=== PATIENT | male | born 2005 | race Caucasian/White ===

== ENCOUNTER 2024-06-04 12:19 | Outpatient (OUT) | payer BC, OTHER, SELFPAY | END 2024-06-04 12:20 | disposition home or self-care (01) | LOC: PST 12:25 | PROVIDERS: PCP Family Medicine; Visit Provider Surgery | DX: Z01.818 Encounter for other preprocedural examination (principal); L05.91 Pilonidal cyst without abscess ==

== ENCOUNTER 2024-06-20 09:35 | Day surgery (SDC) | payer BC, OTHER, SELFPAY ==
[2024-06-04 12:54] VITALS: BP 118/63; PULSE 63; TEMP 36.3; O2SAT 99; BMI 30.7
[2024-06-20] VITALS (13 sets, daily range): BP systolic 95–162; BP diastolic 60–78; PULSE 68–97; TEMP 36.1–36.4; O2SAT 94–99; BMI 30.9
--- NOTE | 2024-06-20 | OP_ITS ---
OPERATION DATE: 06/20/2024 PREOPERATIVE DIAGNOSIS: Pilonidal cyst with sinus tract. POSTOPERATIVE DIAGNOSIS: Pilonidal cyst with sinus tract. PROCEDURE: Excisional pilonidal cyst with sinus tract with primary closure of the midline pits as well as lateral packing. SURGEON: Rafi Palma M.D. ANESTHESIA: General endotracheal, as well as local with 0.5% Marcaine plain. ESTIMATED BLOOD LOSS: Less than 20 mL. 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 Indications, risks, benefits, alternatives of proceeding with excision of pilonidal disease with likely packing were explained extensively the patient, including risks of bleeding, infection, scarring and pain, recurrence, need for further surgery, anesthetic complications. All of his questions were answered. Informed consent was obtained. PROCEDURE: Patient brought to the operating room, placed in the left supine position, general anesthesia was induced. He was then placed in the prone position and appropriately monitored and padded. He was prepped and draped in the usual sterile fashion. He was noted to have a large granuloma that was draining bloody fluid just to the left of the upper gluteal cleft with marked inflammation. In the mid gluteal cleft, there was noted to be four dilated pits with no current inflammation or drainage from this area. The granuloma area to the left of the upper cleft was excised in an elliptical fashion. The area was curetted out. A large amount of hair and granulation tissue was removed. Elliptical incision was then made to excise the midline pits. This was extended over to the left in order to close the incision off in the midline. The right sided portion of the incision was mobilized as a flap. It should be noted that the granulation tissue, extending from the left upper area, extended deep to the pre-sacral fashion. This area was all excised and debrided with the curette. A large amount of hair and granulation tissue was removed. Once this was completed, the flap was then closed in layers with some 3-0 Monocryl subcutaneous sutures, 4-0 Monocryl subcuticular sutures, as well as some interrupted 5-0 nylon sutures. The granuloma area to the left of the upper gluteal cleft was then packed with half inch Iodoform. Glue was applied to the closed incision, as well as a sterile pressure dressing. Sponge and needle counts were correct x3 per nursing personnel. Patient tolerated procedure well, was placed back in the supine position, extubated and sent to recovery room in good condition. CC: Anmol Diaz
--- OUTSIDE RECORDS SUMMARY | 2024-06-20 09:52 | XMS_ITS | CCD ---
Author Organization [facility] Care Team Providers Care General Accounting Clerk Name Role Phone Jovana Hoyt Unavailable JOVANA HOYT Admitting Unavailable DONNELL, DR MARY Tavares Consulting Unavailable JOVANA HOYT Attending Unavailable SHERLEY PHELPS Primary Care Unavailable JOVANA HOYT Consulting Unavailable ROSITA, DR TIFFANY Stearns Attending Unavailable ROSITA, DR TIFFANY Stearns Admitting Unavailable ANIRUDH, DR AYLIN Horton Consulting Unavailable SHERLEY PHELPS Primary Care Unavailable ROSITA, DR TIFFANY Stearns Consulting Unavailable SHERLEY PHELPS Admitting Unavailable SHERLEY PHELPS Attending Unavailable SHERLEY PHELPS Consulting Unavailable SHERLEY PHELPS Primary Care Unavailable SHERLEY PHELPS Primary Care Unavailable MAURO WILSON Admitting Unavailable MAURO WILSON Attending Unavailable MAURO WILSON Consulting Unavailable LINCOLN NEWMAN Consulting Unavailable Tiffany Becker Unavailable TIFFANY BECKER Primary Care Physician [phone] No, Physician Primary Care Provider Unavailabl e PROVIDER, EXTERNAL Admitting Unavailable TONYA CHRISTENSEN Attending Unava ilable NO, PHYSICIAN Primary Care Unavailable TONYA CHRISTENSEN Attending Unava ilable JOSE MIGUEL, PHYSICIAN Primary Care Unavailable Rafi PALMA Attending Unavailable Allergies Allergy Classification Reported Allergen(s) Allergy Type Date of Onset Reaction(s) Facility (1 source) No Known Medication Allergies; Translations: [No Known Medication Allergies] Propensity to adverse reactions (disorder) [facility] Repository Medications Current Medications Medication Drug Class(es) Dates Sig (Normalized) Sig (Original) amoxicillin 500 mg oral capsule (3 sources) Penicillin-class Antibacterial Start: 01-28-2023 take 1 capsule by mouth every eight hours Amoxicillin 500 MG 1 capsule Orally every 8 hrs for 10 days Dec, Active Start: 08-04-2022 take 1 capsule by [facility] every eight hours Amoxicillin 500 MG 1 capsule Orally every 8 hrs for 7 days Aug, Active amoxicillin 875 mg / clavulanate 125 mg oral tablet (3 sources) Penicillin-class Antibacterial Start: 04-23-2024 take 1 tablet by mouth twice daily Amoxicillin-Pot Clavulanate Active 1 TAB PO Twice daily April 23, 2024 12:00am Start: 08-19-2023 take 1 tablet by michael th every twelve hours Amoxicillin-Pot Clavulanate 875-125 MG 1 tablet Orally every 12 hrs for 10 day(s) Aug, Active Start: 02-09-2023 End: 02-14-2023 take 1 tablet by mouth twice daily Augmentin 875 mg oral tablet = 1 tab(s), Oral, BID, X 5 day(s), # 10 tab(s), Refills(s) 0, Pharmacy: [facility]/pharmacy #[id number], 190.5, cm, 02/09/23 15:30:00 EDT, Height/Length Dosing, 90.2, kg, 02/09/23 15:30:00 EDT, Weight Dosing Start Date: 02/09/23 Stop Date: 02/14/23 Status: Ordered clarithromycin 500 mg oral tablet (2 sources) Macrolide Antimicrobial Start: 10-07-2022 take 1 tablet by mouth every twelve hours Clarithromycin 500 MG 1 tablet Orally every 12 hrs for 10 days Sep, Active escitalopram 10 mg oral tablet (5 sources) Serotonin Reuptake Inhibitor Start: 06-01-2024 take 1 tablet by mouth once daily Lexapro 10 mg Tab 10 mg = 1 tab(s), Oral, Daily, Refills(s) 0 Start Date: 06/01/24 Status: Ordered Start: 02-03-2024 End: 02-20-2024 take 1 tablet by mouth once daily Escitalopram Oxalate (Lexapro) 10 mg tablet Active 10 MG PO Daily February 20, 2024 12:57pm methylPREDNISolone 4 mg oral tablet (2 sources) Corticosteroid Start: 01-28-2023 methylPREDNISolone 4 MG as directed Orally for 6 days Dec, Active ondansetron 4 mg disintegrating oral tablet (1 source) Serotonin-3 Receptor Antagonist Start: 08-17-2023 End: 08-20-2023 apply 1 tablet topically every eight hours as needed for nausea ondansetron (ZOFRAN-ODT) 4 MG disintegrating tablet Indications: Influenza-like illness Dissolve 1 (one) tablet (4 mg total) on top of tongue every 8 (eight) hours as needed for nausea . 9 tablet 0 08/17/2023 08/20/2023 Active oseltamivir 75 mg oral capsule (1 source) Neuraminidase Inhibitor Start: 08-17-2023 End: 08-22-2023 take 1 capsule by mouth twice daily oseltamivir (TAMIFLU) 75 MG capsule Indications: Influenza-like illness Take 1 (one) capsule (75 mg total) by mouth 2 (two) times a day for 5 days . 10 capsule 0 08/17/2023 08/22/2023 Active predniSONE 20 mg oral tablet (1 source) Start: 08-04-2022 take 2 tablets by mouth once daily at mealtime predniSONE 20 MG 2 tablets with food or milk Orally Once a day for 5 days Aug, Active Completed/Discontinued Medications Medication Drug Class(es) Dates Sig (Normalized) Sig (Original) Azithromycin (5 sources) Macrolide Antimicrobial Start: 06-30-2015 Zithromax 200mg/5ml 200 mg/5 ml 9.4 mL today, then 4.7 ML once daily on day 2-5 orally daily for 5 days Jun, Not-Taking busPIRone (5 sources) busPIRone HCl Not-Taking busPIRone HCl Ac tive Problems Active Problems Problem Classification Problem Date Documented Da te Episodic/Chronic Acute and chronic tonsillitis (8 sources) Enlarged tonsil; Translations: [Hypertrophy of tonsils] Chronic Acute and chronic tonsillitis (2 sources) Acute tonsillitis, unspecified; Translations: [Acute tonsillitis] Episodic Anxiety disorders (7 sources) Anxiety; Translations: [Anxiety disorder] 02-02-2023 Chronic Asthma (1 source) Exacerbation of asthma; Translations: [Unspecified asthma with (acute) exacerbation] Chronic Immunizations and screening for infectious disease (1 source) Vaccination given; Translations: [Encounter for immunization] Episodic Influenza (3 sources) Influenza-like illness; Translations: [Influenza due to unidentified influenza virus with other respiratory manifestations] Onset: 08-17-2023 08-17-2023 Episodic Mycoses (2 sources) Tinea corporis; Translations: [Tinea corporis] Onset: 11-08-2023 Episodic Other connective tissue disease (1 source) Muscle pain; Translations: [Myalgia, other site] Episodic Other nutritional; endocrine; and metabolic disorders (1 source) Body mass index 30+ - obesity 06-01-2024 Chronic Other nutritional; endocrine; and metabolic disorders (1 source) Obesity caused by energy imbalance 06-01-2024 Chronic Other nutritional; endocrine; and metabolic disorders (1 source) Body mass index less than 20; Translations: [Body mass index (BMI) 19.9 or less, adult] Episodic Other skin disorders (4 sources) Localized swelling, mass and lump, neck; Translations: [LOCALIZED SWELLING MASS AND LUMP NECK] Onset: 12-23-2021 Episodic Other skin disorders (1 source) Localized swelling, mass and lump, neck; Translations: [Localized swelling, mass and lump, neck] Episodic Other skin disorders (1 source) Disorder of skin; Translations: [Other specified disorders of the skin and subcutaneous tissue] Onset: 06-01-2024 Episodic Other skin disorders (1 source) Pilonidal disease 06-01-2024 Episodic Other upper respiratory infections (11 sources) Acute pharyngitis, unspecified; Translations: [Acute maxillary sinusitis, unspecified] Onset: 04-02-2021 Episodic Residual codes; unclassified (1 source) Normal body mass index; Translations: [Body mass index (BMI) 24.0-24.9, adult] Episodic Residual codes; unclassified (1 source) Symptom: generalized; Translations: [Other general symptoms and signs] Episodic Skin and subcutaneous tissue infections (6 sources) Pilonidal cyst without abscess; Translations: [Pilonidal cyst] Onset: 02-09-2023 Episodic Syncope (1 source) Syncope and collapse; Translations: [Syncope and collapse] Episodic Unclassified (1 source) Body mass index 20-24 - normal 02-09-2023 Viral infection (1 source) Viral disease; Translations: [Viral infection, unspecified] Episodic Past or Other Problems Problem Classification Problem Date Documented Da te Episodic/Chronic E Codes: Natural/environment (1 source) Exposure to other specified factors, initial encounter; Translations: [EXPOSURE OTHER SPEC FACTORS INITIAL] Onset: 07-20-2021 Episodic E Codes: Unspecified (1 source) Activity, basketball; Translations: [ACTIVITY BASKETBALL] Onset: 07-20-2021 Episodic Fracture of upper limb (7 sources) Other fracture of third metacarpal bone, left hand, initial encounter for closed fracture; Translations: [Other fracture of third metacarpal bone, left hand, subsequent encounter for fracture with routine healing] Onset: 07-20-2021 Resolved: 08-11-2021 Episodic Nausea and vomiting (1 source) Nausea; Translations: [Nausea] Resolved: 04-28-2018 Episodic Other connective tissue disease (3 sources) Pain in left hand; Translations: [PAIN IN LEFT HAND] Onset: 07-18-2021 Episodic Other skin disorders (1 source) Ingrowing nail; Translations: [Ingrowing nail] Resolved: 07-03-2018 Episodic Sprains and strains (1 source) Sprain of right knee; Translations: [Sprain of unspecified site of right knee, initial encounter] Resolved: 04-28-2018 Episodic Results Test Name Value Interpretation Reference Range Facility Ambulatory Visit Summaryon 1 08-01-2023 Ambulatory Visit Summary Ambulatory Visit Summary STEVE POLLACK Chaitanya :2005 Visit Date:06/01/2024 Ambulatory Visit Instructions Your Care Team Attending Physician - ELIANA MANNING, Rafi Tavares Primary Care Physician - TIFFANY BECKER MD This Is Your Medications List Contact prescribing physician if questions or concerns escitalopram (Lexapro 10 mg Tab) Procedures Performed Repair of hydrocele. Discharge Vitals Heart Rate (Peripheral) 67 Respiratory Rate 16 Blood Pressure 112/71 Height 190.5 cm Height 75 in Weight 112.5 kg Weight 247.5 lb BMI 31 Medications What How Much When Instructions Unchanged escitalopram (Lexapro 10 mg Tab) 1 Tablets By Mouth Every day Contact prescribing physician if questions or concerns Allergies No Known Allergies No Known Medication Allergies Problems Ongoing - Any problem that you are currently receiving treatment for. Anxiety BMI 31.0-31.9,adult Obesity due to excess calories Pilonidal cyst Patient Survey You may receive a survey via text or e-mail asking about your office visit. Please share your experience with us by completing your survey. We appreciate your feedback and thank you for choosing us for your care. Miki [facility] General Surgery Office/Clini c Noteon 06-01-2024 General Surgery Office/Clinic Note General Surgery Office/Clinic Note Chief Complaint reevaluate pilonidal disease HPI Staff 19 year old male presents to reevaluate pilonidal disease. Last evaluation completed 01/2023. Reports continued intermittent soreness and drainage. Reports one episode of ATB use since last evaluation for increased discomfort and drainage. History of Present Illness 19 yo male presents for reevaluation of pilonidal disease; first episode with abscess 10/2022; had spontaneous drainage; since then has had intermittent drainage, swelling soreness; ready for surgical intervention now; no tobacco use; no asa or NSAID use. Review of Systems PHQ Score Initial Depression Screen Score: 0 SCORE ROS - Provider Constitutional: no fever, no sweats, no weight loss. Eyes: no glasses, no blurred vision, no visual loss. ENMT: no dentures, no hoarseness, no swallowing difficulties, no hearing loss, no ear infection(s), no nose bleeds. Cardiovascular: normal blood pressure, no chest pain, regular heartbeat, no heart murmur. Respiratory: no shortness of breath, no cough, no asthma, no wheezing. Gastrointestinal: no nausea, no vomiting, no diarrhea, no constipation, no blood in stool, no change in bowel habits, no abdominal pain, no hepatitis. Genitourinary: no kidney stones, no urine infection, no dysuria. Musculoskeletal: no pain, no weakness. Skin: no changing moles, no rash, no skin lumps. Neurologic: no seizures, no epilepsy, no headache. Psychiatric: no emotional or psychiatric problem. Heme/Lymph: no bleeding problems, no anemia, no blood clots, no transfusions. Allergy/Immunologic: no swollen lymph nodes/glands, no IV drug abuse. Other: Additional ROS info: Except as noted in the above Review of Systems and in the History of Present Illness, all other systems have been reviewed and are negative or noncontributory. Physical Exam Vitals & Measurements HR: 67(Peripheral) RR: 16 BP: 112/71 HT: 75 in HT: 190.5 cm WT: 112.5 kg WT: 247.5 lb BMI: 31 HEENT: normal conjunctiva, sclera clear, no scleral icterus, EOM intact, PERRLA, oral mucosa moist without lesions. Neck: trachea midline, no mass, symmetric, no thyromegaly or nodules, no adenopathy Respiratory: lungs CTA, respirations non labored. Cardiovascular: regular rate and rhythm, no murmur, no pedal edema or varicosities. Gastrointestinal: soft, non distended, no tenderness, no masses, no palpable hernias, diastasis recti no, no hepatosplenomegaly; normal bs Lymphatic: no cervical adenopathy, no supraclavicular adenopathy. Musculoskeletal: normal gait, digits and nails without infection, nodes, cyanosis, clubbing. Skin: no rashes, no lesions, no ulcers, indurated granuloma/scar left of upper gluteal cleft; mid gluteal cleft with pit/increased hair, minimal serous drainage. Psychiatric/Neuro: oriented to time, place, person, judgement normal, affect appropriate for age, insight intact, no focal deficits. Tests: review of old records completed , Discussed surgical options, risks, and possible complications with patient. Assessment/Plan 1. Pilonidal disease (L98.8: Other specified disorders of the skin and subcutaneous tissue) plan excision pilonidal disease, pit/sinus track/granuloma; partial closure, likely packing under anesthesia; informed consent obtained. Ancef 2 gms IV prior to OR SCDs Follow-up No qualifying data available Problem List/Past Medical History Ongoing Anxiety BMI 31.0-31.9,adult Obesity due to excess calories Pilonidal cyst Pilonidal disease Historical No qualifying data Procedure/Surgical History Repair of hydrocele. Medications Lexapro 10 mg Tab, 10 mg= 1 tab(s), Oral, Daily Allergies No Known Allergies No Known Medication Allergies Social History Alcohol - Denies Alcohol Use, 02/09/2023 Substance Abuse - Denies Substance Abuse, 02/09/2023 Never., 05/30/2024 Tobacco Never (less than 100 in lifetime) Tobacco Use:. Never Smokeless Tobacco Use:., 06/01/2024 Family History Family history is negative Immunizations Vaccine Date Status SARS-CoV-2 (COVID-19) mRNA BNT-162b2 vax 11/26/2020 Recorded SARS-CoV-2 (COVID-19) mRNA BNT-162b2 vax 11/05/2020 Recorded Normal [facility] Comment on above: Result Comment: Elec tronically Signed By: ELIANA MANNING, Rafi Hassan\Date and Time Signed: 06/01/24 16:02 EDT COVID-19, MOLECULARon 2023 SARS-CoV-2 (COVID-19) Ab IA Ql Not detected Normal Not Detected [facility] Comment on above: Result Comment: Test ing was performed using the [employer] ID NOW COVID-19 assay on the [employer] platform. This test has not been approved for use in asymptomatic patients and its performance in this patient population has not been evaluated. Negative results do not rule out the presence of SARS-CoV-2/COVID-19. COVID-19, Molecularon 2023 SARS-CoV-2 (COVID-19) RdRp gene MEG+probe Ql (Resp) Not detected Not Detected [facility] Comment on above: Testing was performe d using the Cano ID NOW COVID-19 assay on the ID NOW platform. This test has not been approved for use in asymptomatic patients and its performance in this patient population has not been evaluated. Negative results do not rule out the presence of SARS-CoV-2/COVID-19. POC Influenza A/B, Molecular on 08-17-2023 FLUAV RNA MEG+probe Ql (Unsp spec) Negative Negative [facility] FLUBV RNA MEG+probe Ql (Unsp spec) Negative Negative [facility] Interpretation and review of laboratory results Normal [facility] SARS-CoV-2 (COVID-19) RdRp g ebony MEG+probe Ql (Resp)on 08-17-2023 Interpretation and review of laboratory results Normal [facility] US ST HEAD_NECKon 12-23-[address] HEAD_NECK EXAM: US ST HEAD_NEC K HISTORY: Mass of neck COMPARISON: None. TECHNIQUE: Grayscale and color ultrasound FINDINGS: Ultrasound in the left neck corresponding to the patient's palpable abnormality demonstrates multiple normal size normal morphology lymph nodes, the largest measures 2.5 x 0.6 x 1.2 cm. IMPRESSION: Normal size normal morphology lymph nodes Electronically authenticated by: AYLIN OLEARY Date: 2021-12-23 11:58 Normal [facility] XR HAND LT MIN 3Von 07-18-20 21 XR HAND LT MIN 3V EXAM: XR HAND LT MIN 3V HISTORY: The patient is a 16-year-old male with left third distal metacarpal pain after basketball injury. COMPARISON: None. FINDINGS: There is a nondisplaced longitudinal fracture through the ulnar side of the head of the long finger metacarpal. This fracture does not appear to involve the articular surface of the metacarpal head. No other acute or ununited fractures are seen within the left hand. The widths and alignment of all the joints are maintained. IMPRESSION: Nondisplaced extra-articular fracture of the head of the long finger metacarpal. Electronically authenticated by: LINCOLN NEWMAN Date: 2021-07-18 21:57 Normal [facility] CULTURE THROATon 04-02-2021 CULTURE THROAT Culture Observations : NORMAL RESPIRATORY ALYCIA. Normal [facility] Comment on above: Performed By: #### T HRTCX, SSCRN #### [facility] [address], [place] [address] Barbara Nava STREPT SCREENon 04-02-2021 STREP SCREEN A Negative Normal NEGATIVE [facility] Comment on above: Performed By: #### T HRTCX, SSCRN #### [facility] [address], [place] [address] Barbara Leonen Vital Signs Date Time Vital Sign Value Performing Clinician Facility 06-01-2024 14:03-0400 Blood Pressure Location Rafi PALMA [facility] [place] 06-01-2024 14:03-0400 Diastolic blood pressure 71 mm[Hg] Rafi CEDENOL [facility] [place] 06-01-2024 14:03-0400 Heart rate 67 /min Rafi CEDENOL [facility] [place] 06-01-2024 14:03-0400 Respiratory rate 16 /min Rafi CEDENOL [facility] [place] 06-01-2024 14:03-0400 Systolic blood pressure 112 mm[Hg] Rafi PALMA [facility] [place] 08-17-2023 17:26-0500 Diastolic blood pressure 59 mm[Hg] Tonya Christensen [facility] Work Phone: [facility] 08-17-2023 17:26-0500 Heart rate 112 /min Tonya Christensen COMPUTER AIDE Work Phone: [facility] 08-17-2023 17:26-0500 Systolic blood pressure 103 mm[Hg] Tonya Christensen COMPUTER AIDE Work Phone: [facility] 08-17-2023 17:21-0500 Body temperature 98.71 [degF] Tonya Christensen COMPUTER AIDE Work Phone: [facility] 08-17-2023 17:21-0500 Body weight 97.55 kg Tonya Christensen COMPUTER AIDE Work Phone: [facility] 08-17-2023 17:21-0500 Respiratory rate 16 /min Tonya Christensen COMPUTER AIDE Work Phone: [facility] 08-17-2023 17:21-0500 SaO2% (BldA) [Mass fraction] 98 % Tonya Christensen COMPUTER AIDE Work Phone: [facility] 02-09-2023 15:22-0400 Blood Pressure Location Rafi NILL [facility] [place] 02-09-2023 15:22-0400 bodymassindex 0.69 Rafi NILL [facility] [place] Comment on above: Result Comment: ^~:!ZScore Source [facility] 02-09-2023 15:22-0400 Diastolic blood pressure 70 mm[Hg] Rafi NILL [facility] [place] 02-09-2023 15:22-0400 Heart rate 70 /min Rafi NILL [facility] [place] 02-09-2023 15:22-0400 Height/Length Percentile 97.52 Rafi NILL [facility] [place] Comment on above: Result Comment: ^~:!Percentile Source -[facility] 02-09-2023 15:22-0400 Height/Length Z-Score 1.96 Rafi NILL [facility] [place] Comment on above: Result Comment: ^~:!ZScore Source -[facility] 02-09-2023 15:22-0400 Respiratory rate 16 /min Rafi NILL [facility] [place] 02-09-2023 15:22-0400 Systolic blood pressure 106 mm[Hg] Rafi NILL [facility] [place] 02-09-2023 15:22-0400 weight 1.45 Rafi NILL [facility] [place] Comment on above: Result Comment: ^~:!ZScore Source -[facility] 02-09-2023 15:22-0400 Weight Percentile 92.65 % Rafi NILL [facility] [place] Comment on above: Result Comment: ^~:!Percentile Source -[facility] 01-28-2023 11:45-0400 Body height 190.5 cm Tiffany Becker Other [place] [facility] Other 01-28-2023 11:45-0400 Body mass index (BMI) [Ratio] 24.5 kg/m2 Tiffany Becker Other [place] [facility] Other 01-28-2023 11:45-0400 Body temperature 101.3 [degF] Tiffany Becker Other [facility] [facility] Other 01-28-2023 11:45-0400 Body weight 88.91 kg Tiffany Becker Other [place] [facility] Other 01-28-2023 11:45-0400 Diastolic blood pressure 68 mm[Hg] Tiffany Becker Other [facility] [facility] Other 01-28-2023 11:45-0400 Systolic blood pressure 102 mm[Hg] Tiffany Becker Other [place] [facility] Other 08-04-2022 15:45-0500 Body height 189.23 cm Tiffany Becker Other [place] [facility] Other 08-04-2022 15:45-0500 Body mass index (BMI) [Ratio] 24.95 kg/m2 Tiffany Becker Other [facility] [facility] Other 08-04-2022 15:45-0500 Body temperature 100.4 [degF] Tiffany Becker Other [place] [facility] Other 08-04-2022 15:45-0500 Body weight 89.36 kg Tiffany Becker Other [place] [facility] Other 08-04-2022 15:45-0500 Diastolic blood pressure 62 mm[Hg] Tiffany Becker Other [place] [facility] Other 08-04-2022 15:45-0500 SaO2% (BldA) [Mass fraction] 98 % Tiffany Becker Other [place] [facility] Other 08-04-2022 15:45-0500 Systolic blood pressure 108 mm[Hg] Tiffany Becker Other [facility] [facility] Other 07-21-2021 14:45-0500 Body weight 87.27 kg Jovana Hoyt Other [place] [facility] Other Encounters Encounter Date Encounter Type Care Provider Facility Start: 06-01-2024 End: 06-01-2024 ambulatory Rafi PALMA Facility:[facility] Start: 06-01-2024 End: 06-01-2024 Patient encounter procedure Rafi PALMA [facility] [place] Start: 04-23-2024 End: 04-23-[address] [facility] Work Phone: Start: 04-23-2024 End: 04-23-2024 Patient encounter procedure [facility] Physician [facility] Work Phone: Start: 02-20-2024 End: 02-20-[address] [facility] Work Phone: Start: 02-20-2024 End: 02-20-2024 Patient encounter procedure [facility] Physician [facility] Work Phone: Start: 11-08-2023 End: 11-08-2023 ambulatory TONYA MIKE [facility] Start: 10-06-2023 [facility] Start: 10-06-2023 ambulatory EXTERNAL PROVIDER [facility] Start: 08-19-2023 End: 08-19-2023 ambulatory Tiffany Becker Other [place] [facility] Other Start: 08-19-2023 Office outpatient vi sit 15 minutes Tiffany Becker [facility] Start: 08-17-2023 End: 08-17-2023 ambulatory TONYAJENNIFER MIKE [facility] Start: 08-17-2023 End: 08-17-2023 Office outpatient visit 15 minutes Tonya Keenney [facility] Work Phone: [facility] Comment on above: Influenza-like illne ss (Primary Dx) Start: 02-09-2023 End: 02-09-2023 Patient encounter procedure Rafi PALMA [facility] Start: 01-28-2023 End: 01-28-2023 ambulatory Tiffany Becker Other [place] [facility] Other Start: 01-28-2023 Office outpatient vi sit 15 minutes Tiffany Becker [facility] Start: 01-28-2023 Telephone encounter Tiffany Becker [facility] Start: 10-07-2022 (Televisit) Televisit Tiffany Becker [facility] Start: 10-07-2022 End: 10-07-2022 ambulatory Tiffany Becker Other [place] [facility] Other Start: 08-04-2022 End: 08-04-2022 ambulatory Tiffany Becker Other [place] [facility] Other Start: 08-04-2022 Office outpatient vi sit 15 minutes Tiffany Becker [facility] Start: 05-26-2022 Adult health examination Tiffany Becker Other [place] [facility] Other Start: 05-26-2022 Child [facility] medical examination Tiffany Becker Other [place] [facility] Other Start: 12-23-2021 End: 12-24-2021 ambulatory DR TIFFANY BECKER Facility:[facility] Start: 08-11-2021 End: 08-12-2021 ambulatory JOVANA HOYT [employer] Other Start: 08-11-2021 Postop follow up vis it related to original px Jovana Hoyt [facility] Start: 07-21-2021 End: 07-21-2021 ambulatory Jovana Hoyt Other [facility] Other Start: 07-21-2021 FQ visit new patient Jovana Hoyt [facility] Start: 07-18-2021 End: 07-19-2021 ambulatory SHERLEY PHELPS Facility:[facility] Start: 04-02-2021 End: 04-02-2021 ambulatory SHERLEY PHELPS Facility:[facility] Procedures Date Procedure Procedure Detail Performing Clinician Start: 08-17-2023 Sars-cov-2 detection by dna/rna Tonya Christensen [employer]PUTER [employer]IDE Work Phone: Start: 08-17-2023 Infectious agent dna /rna influenza 1st 2 types Tonya Christensen COMPUTER AIDE Work Phone: Repair of hydrocele Rafi CEDENOL Plan of Treatment Date Care Activity Detail Author Start: 02-27-2025 Tetanus vaccination Tetanus: Every [address] [facility] Start: 04-23-2024 Patient referral [facility] Work Phone: Start: 04-01-2023 COVID-19 Vaccine ( season) COVID-19 Vaccine ( season) [facility] Start: 04-01-2023 Influenza vaccination Sequential Influenza Vaccine (#1) [facility] Start: 01-20-2022 Hepatitis C screening Hepatitis C Screening [facility] Start: 01-20-2019 HIV screening HIV Screening [facility] Start: 2016 Depression screening using PHQ-9 (Patient Health Questionnaire 9) score Depression Screening (PHQ-2/9) [facility] Start: 01-20-2007 History and physical examination, annual for health maintenance Wellness Visit [facility] Patient referral [facility] Work Phone: Immunizations Immunization Date Immunization Notes Care Provider Fa yash 01-15-2021 HPV, unspecified formulation [facility] 01-15-2021 human papilloma viru s vaccine, bivalent Tiffany Becker Other [facility] Other 01-15-2021 meningococcal oligosaccharide (groups A, C, Y and W-135) diphtheria toxoid conjugate vaccine (MCV4O) Tiffany Becker Other [facility] 11-26-2020 SARS-CoV-2 (COVID-19 ) mRNA BNT-162b2 vax [facility] 11-05-2020 SARS-CoV-2 (COVID-19 ) mRNA BNT-162b2 vax [facility] 07-22-2020 influenza virus vacc ine, split virus (incl. purified surface antigen) Tiffany Becker Other [facility] Other 07-22-2020 influenza virus vacc ine, unspecified formulation [facility] Payers Date Payer Category Payer [id number] 2020 Unknown [id number] 2.16.8 [id number] 2020 Unknown [id number] 2019 Unknown [id number] 2. [id number] 2004 Unknown [id number] 2.16.8 [id number] 2004 Unknown [id number] 2.16. [id number] 2004 Unknown [id number] 2.16. [id number] 2004 Unknown [id number] 2.16.8 [id number] 1980 Unknown [id number] 2.16.84 [id number] 1980 Unknown [id number] 2.16.84 [id number] 1980 Unknown [id number] 2.16.84 [id number] 1980 Unknown [id number] 2.16.84 [id number] 1959 Unknown [id number] 2.16. [id number] Unknown [id number] Social History Date Type Detail Facility Start: 06-10-2022 Sex Assigned At F [facility] Start: 02-09-2023 End: 06-01-2024 Tobacco smoking status Never smoked tobacco (finding) [facility] Tobacco smoking status Never [facility] Start: 06-10-2022 Tobacco use and exposure Smokeless tobacco non-user [facility] Start: 06-10-2022 History of Social function [facility] Start: 2004 Sex Assigned At Not on file [facility] Start: 2004 Sex Assigned At Male F [facility] Functional Status Date Assessment Result Facility 06-01-2024 Functional Status N/A [facility] [place] 02-09-2023 Functional Status N/A [facility] Clinical Notes 07-21-2021 to 08-19-2023 Note Date & Type Note Facility 08-19-2023 Evaluation note Encounter Date Diagnosis Assessment Notes Aug, Acute non-recurren t maxillary sinusitis (ICD-10 - J01.00) Sinus infections can be triggered by a secondary infection from a viral URI or even seasonal allergies. Take medications as directed. Use saline nasal spray prior to presciption nasal spray. Take medications as directed, and complete all doses of medication even if you start to feel better. Patient advised to follow up with PCP if symptoms persist or worsen. Patient verbalized understanding and agreement with treatment plan. [facility] Other 01-17-2024 History of Present illness Narrative* Tonya Christensen, [facility] - 08/17/2023 7:00 PM EST Subjective Patient ID: Steve Pollack is a 18 y.o. male. HPI: 18 year old male presents to urgent care with c/o illness that began yesterday. Patient reports headache, fever, chills, congestion, cough, body aches. Patient with nausea and vomiting this morning. Has not tried to eat or drink again today. The following portions of the patient's history were reviewed and updated as appropriate: allergies, current medications, past medical history, and problem list. Review of Systems Constitutional: Positive for chills and fever. Negative for fatigue. All systems reviewed with pertinent positives and negatives mentioned below. HENT: Positive for congestion. Negative for ear pain and sore throat. Eyes: Negative for redness and itching. Respiratory: Positive for cough. Negative for shortness of breath. Cardiovascular: Negative for chest pain and palpitations. Gastrointestinal: Positive for nausea and vomiting. Negative for abdominal pain and diarrhea. Musculoskeletal: Positive for myalgias. Skin: Negative for rash. Neurological: Positive for headaches. Negative for dizziness and weakness. Objective Physical Exam Constitutional: Appearance: Normal appearance. HENT: Head: Normocephalic. Right Ear: Tympanic membrane, ear canal and external ear normal. Left Ear: Tympanic membrane, ear canal and external ear normal. Nose: Nose normal. Mouth/Throat: Mouth: Mucous membranes are moist. Pharynx: Uvula midline. Posterior oropharyngeal erythema present. Tonsils: No tonsillar exudate. 1+ on the right. 1+ on the left. Eyes: Conjunctiva/sclera: Conjunctivae normal. Cardiovascular: Rate and Rhythm: Normal rate and regular rhythm. Heart sounds: Normal heart sounds. Pulmonary: Effort: Pulmonary effort is normal. Breath sounds: Normal breath sounds. Musculoskeletal: General: Normal range of motion. Cervical back: Neck supple. Lymphadenopathy: Cervical: Cervical adenopathy (bilateral anterior) present. Skin: General: Skin is warm and dry. Neurological: General: No focal deficit present. Mental Status: He is alert and oriented to person, place, and time. Psychiatric: Mood and Affect: Mood normal. Behavior: Behavior normal. PROCEDURE Procedures Assessment/Plan: Problem List Items Addressed This Visit None Visit Diagnoses Influenza-like illness - Primary Relevant Medications oseltamivir (TAMIFLU) 75 MG capsule ondansetron (ZOFRAN-ODT) 4 MG disintegrating tablet Other Relevant Orders POC Influenza A/B, Molecular (Completed) COVID-19, Molecular (Completed) Discussion Notes: Negative COVID and flu results discussed with patient. However after completed patient history exam, it is most likely that he does have influenza. He is offered Tamiflu, wishes to proceed with prescription. Zofran also prescribed for his nausea and vomiting. Tylenol or Motrin if needed for fever, follow dosing on bottle. Return precautions are discussed. Recheck for new or worsening concerns. Patient voices understanding of instructions. documented in this [id number] Evaluation note* Encounter Date Diagnosis Assessment Notes Treatment Notes Treatment Clinical Notes Dec, Tonsillitis (ICD-10 - J03.90) take antibiotics as prescribed, call if not resolving Dec, Pilonidal cyst (ICD-10 - L05.91) Requests referral to likely have area removed. [facility] Other 03-09-2023 Evaluation note* Encounter Date Diagnosis Assessment Notes Treatment Notes Treatment Clinical Notes Sep, Acute non-recurrent maxillary sinusitis (ICD-10 - J01.00) Sinus infections can be triggered by a secondary infection from a viral URI or even seasonal allergies. Take medications as directed. Use saline nasal spray prior to presciption nasal spray. Take medications as directed, and complete all doses of medication even if you start to feel better. Patient advised to follow up with PCP if symptoms persist or worsen. Patient verbalized understanding and agreement with treatment plan. [facility] Other 01-04-2023 Evaluation note* Encounter Date Diagnosis Assessment Notes Treatment Notes Treatment Clinical Notes Aug, Acute non-recurrent maxillary sinusitis (ICD-10 - J01.00) Presentation consistent with acute sinusitis after viral illness. Educated patient on appropriateness of antibiotic at this time. Instructed to take full course of antibiotic despite feeling better after a few days. Encouraged to use saline nasal spray or nasal irrigation to help decrease viscosity and allow drainage. Encouraged humidifier or to breathe in steam from shower. Patient to continue Tylenol or Motrin as needed for discomfort. Patient to follow-up with PCP as needed if symptoms do not improve within a few days. Patient verbalizes understanding and agrees with plan of care. Aug, Enlarged tonsils (ICD-10 - J35.1) [facility] Other 01-11-2022 NotePROCEDURE: XR HAND LT MIN 3V HISTORY: Closed fracture of third metacarpal bone of left hand ; follow-up third digit fracture COMPARISON: XR hand left 07/18/2021 FINDINGS: BONES:Nondisplaced fracture involving the medial margin of the third metacarpal head with extension into the articular surface at its margin. Slight increased density of the fracture line and mild callus formation at the proximal margins; no change in alignment. SOFT TISSUES:No visible soft tissue swelling. EFFUSION:None visible. OTHER: Negative. IMPRESSION: 1. Stable, nondisplaced third metacarpal fracture with evidence of early bone healing. Electronically authenticated by: MARY JACOBO Date: 2021-08-11 14:22[facility] [place]01-11-2022 Evaluation note* Encounter Date Diagnosis Assessment Notes Treatment Notes Treatment Clinical Notes Aug, Closed nondisplaced fracture of other part of third metacarpal bone of left hand, initial encounter (ICD-10 - S62.393A) Patient is progressing well from this injury. We discussed the importance of continuing to work on range of motion and strength exercise. Instructed patient to gautam tape the fingers when playing basketball. Seems to be doing quite well. Patient is interested in returning to sport immediately. I think this is reasonable if the hand is taped. We discussed that it is quite early from the injury however since he is doing so well I think it is reasonable to proceed [facility] Other 12-21-2021 Evaluation note* Encounter Date Diagnosis Assessment Notes Treatment Notes Treatment Clinical Notes Jul, Closed nondisplaced fracture of other part of third metacarpal bone of left hand, initial encounter (ICD-10 - S62.393A) Patient has sustained a 3rd metacarpal fracture. This is stable and we will treat nonoperatively at this time. Patient was placed in a splint and instructed to be nonweight bearing on the affected hand. Discussed this can take at least 6 weeks to heal. Instructed on gentle motion of the fingers. Advised patient ice and elevate to decrease pain and swelling. [facility] Other Evaluation + Plan note No data available for this section [facility] Evaluation noteNo [employer] Other Evaluation note* Diagnosis Influ[facility]- [facility] Onset Date Resolution Status MELISA (generalized anxiety disorder) acute [facility] Work Phone: Evaluation note* Diagnosis Onset Date Resolution Status MELISA (generalized anxiety disorder) acute Pilonidal cyst with abscess acute [facility] Work Phone: History general Narrative - Reported* Type Description Date Medical History anxiety Surgical History hernia Hospitalization History skull fx as a baby [facility] Other Hospital Discharge instructions No data available for this section [facility] Discharge instructionsAmbulatory Orders* Referral to General Surgery Time Frame: 04/23/24, Location: None Selected [facility] Work Phone: Progress note No data available for this section [facility] Reason for referral (narrative)* Reason *FU 02/03 Recurren t pilonidal cyst - requests referral for removal. L superior gluteal cleft. Diagnosis 1 Pilonidal cyst (L05. 91) Referral Organization [facility] Referring Provider First Name Tiffany Referring Provider Last Name Rosita Referring Provider Specialty Family [facility] cine Referred Organization [facility] Referred Provider Rafi Palma Referred Address [address], [place],[address] Referred Provider Specialty Surgery Referral Priority Routine General Notes Emma Ariela 02:32:18 PM >received today, notes locked, ins attached, referral faxed Clinical Notes F: [phone] [facility] Other Summary Purpose Family History No Family History Records FoundNo Family History Records FoundNo Family History Records FoundNo Family History Records Found No data available for this section No Family History Records Found Advance Directives No Advanced Directives Records Found Advance Directive Response Recorded Date/ Time Advance Directives No February 19 12:02pm Chief Complaint and Reason for Visit Chief Complaint f/u Reason for Visit MELISA (generalized anx iety disorder) Chief Complaint f/u pilonidal cyst Reason for Visit MELISA (generalized anx iety disorder) Pilonidal cyst with abscess Additional Source Comments REASON FOR VISIT (unrecogniz ed section and content) Reason Comments Cough Fever 103.8 today , body aches , chills , fatigue , headache when stands up it throbs. Started yesterday am tried to eat this am and threw it back up. Has not ate or drank the rest of the day. (unrecognized sect ion and content) No Status Records FoundNo Status Records FoundNo Status Records FoundNo Status Records FoundNo Status Records Found INFORMATION SOURCE (unrecogn ized section and content) DATE CREATED AUTHOR 02/10/2022 [facility] DATE CREATED AUTHOR AUTHOR'S ORGANIZ ATION 10/07/2023 [facility] DATE CREATED AUTHOR AUTHOR'S ORGANIZ ATION 10/09/2023 [facility] [employer] [facility] ([place] DATE CREATED AUTHOR AUTHOR'S ORGANIZ ATION 11/09/2023 [facility] DATE CREATED AUTHOR AUTHOR'S AMBIKA ATGABBY 06/03/2024 [facility] Patient Care team informatio n (unrecognized section and content) General Accounting Clerk Relationship Specialty Start Date End Date No, Physician [facility] PCP - General 06/10/22 Team Status: Active Member Role Status Dates Tiffany Becker MD Primary Care Provider Active Team Status: Inactive Member Role Status Dates Tiffany Becker MD Primary Care Provide r, Attending Provider Active Start: February 20, 2024 End: February 20, 2024 Team Status: Inactive Member Role Status Dates Tiffany Becker MD Primary Care Provide r, Attending Provider Active Start: April 23, 2024 End: April 23, 2024 Goals (unrecognized section and content) Goals may be documented in a n alternate section FOR RECORDS PERTAINING TO PATIENTS WHO ARE OR HAVE BEEN ENROLLED IN A CHEMICAL DEPENDENCY/SUBSTANCEABUSE PROGRAM, SOME INFORMATION MAY BE OMITTED. This clinical summary was aggregated from multiple sources. Caution should be exercised in using it in the provision of clinical care. This summary normalizes information from multiple sources, and as a consequence, information in this document may materially change the coding, format and clinical context of patient data. In addition, data may be omitted in some cases. CLINICAL DECISIONS SHOULD BE BASED ON THE PRIMARY CLINICAL RECORDS. [employer] provides no warranty or guarantee of the accuracy or completeness of information in this document.
[2024-06-20] MEDS: 0.9 % SODIUM CHLORIDE 500 ML 50 ML IV (09:59)
[2024-06-20] MEDS: CEFAZOLIN SODIUM 2 GM/50 ML D5W PREMIX IV (11:22)
[2024-06-20] MEDS: LACTATED RINGER'S SOLUTION 1,000 ML 50 ML IV (12:09)
[2024-06-20] MEDS: BUPIVACAINE HCL 0.5% PF 50 MG/10 ML VIAL 20 ML INJ (12:32)
[2024-06-20] MEDS: PROMETHAZINE HCL 12.5 MG in 0.9 % SODIUM CHLORIDE 50 ML 202 MG IV (14:04)
== END 2024-06-20 14:53 | disposition home or self-care (01) ==
PROVIDERS: PCP Family Medicine; Visit Provider Surgery
PROC: (CPT 300; principal; 2024-06-20 10:30)
DX: L05.91 Pilonidal cyst without abscess (principal)
CPT/HCPCS: 11770; 88304; J0665; J0690; J1100; J1171; J1885; J2250; J2371; J2405; J2704; J3010